=== PATIENT | male | born 1960 | race African-American/Black ===

== ENCOUNTER 2018-02-10 00:06 | Emergency (ER) | payer MEDICAID, OTHER ==
[2018-02-10 00:12] VITALS: BP 153/99; PULSE 85; RESP 20; TEMP 98.1; O2SAT 98
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
[2018-02-10] MEDS ORDERED: IBUPROFEN 800 MG TAB PO ONE (01:15)
== END 2018-02-10 01:27 ==
LOC: NEPD 00:06
DX: S09.93XA Unspecified injury of face, initial encounter (principal); Y04.2XXA Assault by strike against or bumped into by another person, initial encounter; F17.200 Nicotine dependence, unspecified, uncomplicated
CPT/HCPCS: 70486; 99283